=== PATIENT | female | born 1995 | race Caucasian/White ===

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

== ENCOUNTER 2017-01-26 18:31 | Emergency (ER) | payer OTHER ==
[~2017-01-26] VITALS: Ht 160 cm; Wt 100.0 kg
[2017-01-26] MEDS ORDERED: KETOROLAC TROMETHAMINE 60 MG/2 ML VIAL IM ONE (21:15)
[2017-01-26] MEDS ORDERED: METHOCARBAMOL 500 MG TABLET PO ONE (21:15)
[2017-01-26 22:26] VITALS: BP 138/71
== END 2017-01-26 22:27 | disposition home or self-care (01) ==
LOC: EMS 18:49
DX: S16.1XXA Strain of muscle, fascia and tendon at neck level, initial encounter (principal); S29.012A Strain of muscle and tendon of back wall of thorax, initial encounter; I10 Essential (primary) hypertension; V49.9XXA Car occupant (driver) (passenger) injured in unspecified traffic accident, initial encounter; Y93.89 Activity, other specified; Y92.488 Other paved roadways as the place of occurrence of the external cause; Y99.8 Other external cause status
CPT/HCPCS: 96372; 99283; J1885

== ENCOUNTER 2017-09-05 12:39 | Emergency (ER) | payer OTHER ==
[~2017-09-05] VITALS: Ht 160 cm; Wt 104.5 kg
[2017-09-05] MEDS ORDERED: AZITHROMYCIN 250 MG TABLET PO ONE (17:15)
[2017-09-05 19:13] VITALS: BP 126/72
== END 2017-09-05 19:17 | disposition home or self-care (01) ==
LOC: EMS 12:40
DX: J18.9 Pneumonia, unspecified organism (principal)
CPT/HCPCS: 71046; 99284

== ENCOUNTER 2017-12-23 09:40 | Emergency (ER) | payer OTHER ==
[~2017-12-23] VITALS: Ht 160 cm; Wt 101.0 kg
[2017-12-23 09:45] VITALS: BP 120/80
[2017-12-23] MEDS ORDERED: IBUPROFEN 600 MG TABLET PO ONE (10:30)
== END 2017-12-23 12:21 | disposition home or self-care (01) ==
LOC: EMS 09:42
DX: S93.401A Sprain of unspecified ligament of right ankle, initial encounter (principal); X58.XXXA Exposure to other specified factors, initial encounter; Y93.89 Activity, other specified; Y92.89 Other specified places as the place of occurrence of the external cause; Y99.8 Other external cause status
CPT/HCPCS: 99284

== ENCOUNTER 2018-06-09 21:42 | Emergency (ER) | payer OTHER ==
[~2018-06-09] VITALS: Ht 160 cm; Wt 93.2 kg
[2018-06-09 22:30] VITALS: BP 118/79
[2018-06-09] MEDS ORDERED: IBUP100T53 PO (22:36)
== END 2018-06-09 23:16 | disposition home or self-care (01) ==
LOC: EMS 21:43
DX: S46.812A Strain of other muscles, fascia and tendons at shoulder and upper arm level, left arm, initial encounter (principal); V89.2XXA Person injured in unspecified motor-vehicle accident, traffic, initial encounter; Y93.89 Activity, other specified; Y92.89 Other specified places as the place of occurrence of the external cause; Y99.8 Other external cause status